=== PATIENT | female | born 1955 | race Caucasian/White ===

== ENCOUNTER 2021-05-27 06:12 | Day surgery (SDC) | payer BC, SELFPAY ==
[~2021-05-27] VITALS: Ht 162.6 cm; Wt 99.8 kg
[2021-05-27] MEDS ORDERED: WATER FOR IRRIGATION,STERILE 1,000 ML IRRIG.SOLN IR ONE (07:00)
[2021-05-27] MEDS ORDERED: PROPOFOL 200MG/ 20ML VIAL (DIPRIVAN) IV ONE (07:00)
[2021-05-27] MEDS ORDERED: NS IRRIG SOLN 1000 ML IR ONE (07:00)
[2021-05-27] MEDS ORDERED: LR 1,000 ML IV.SOLN IV ONE (07:00)
[2021-05-27] MEDS ORDERED: fentaNYL CITRATE/PF 100 MCG/2 ML AMP IVP ONE (07:00)
[2021-05-27] MEDS ORDERED: SEVOFLURANE 15 MIN GAS INH ONE (07:00)
[2021-05-27] MEDS ORDERED: MIDAZOLAM HCL 5 MG/5 ML VIAL IVP ONE (07:00)
[2021-05-27] MEDS ORDERED: DEXAMETHASONE SOD PHOSPHATE 4 MG/ML VIAL IVP ONE (07:00)
[2021-05-27] MEDS ORDERED: MEPERIDINE HCL/PF 25 MG/ML DISP.SYRIN IVP PRN (08:30)
[2021-05-27] MEDS ORDERED: LR 1,000 ML IV SCH (08:30)
[2021-05-27] MEDS ORDERED: METOCLOPRAMIDE HCL 10 MG/2 ML VIAL IVP PRN (08:30)
[2021-05-27] MEDS ORDERED: HYDROmorphone 1 MG/ML INJ. CARTRIDGE IVP PRN (08:30)
[2021-05-27] MEDS ORDERED: ONDANSETRON HCL 4 MG/2 ML VIAL IVP PRN ×2 (08:30→08:45)
[2021-05-27] MEDS ORDERED: OXYCODONE/ACETAMINOPHEN 5-325 TABLET PO PRN ×2 (08:45)
[2021-05-27] MEDS ORDERED: HYDROcodone/ACETAMIN 5-325 MG TAB (NORCO/ VICODIN) PO PRN (08:45)
[2021-05-27 11:54] VITALS: BP_SYST 157
== END 2021-05-27 11:15 | disposition home or self-care (01) ==
LOC: SDS 06:12 → SMU 06:13 → SDS 11:15
PROVIDERS: ATTEND Specialist
DX: N95.0 Postmenopausal bleeding (principal); R93.89 Abnormal findings on diagnostic imaging of other specified body structures; I10 Essential (primary) hypertension; N84.0 Polyp of corpus uteri; Z20.822 Contact with and (suspected) exposure to COVID-19
CPT/HCPCS: 58558; 71046; 88305; 93005; U0003; J1100; J2250; J2704; J3010; J7120